=== PATIENT | female | born 1965 | race Caucasian/White ===

== ENCOUNTER 2017-01-21 09:16 | Outpatient (CLI) | payer BC ==
[~2017-01-21 09:16] MED LIST: LISI-209 PO; LORA-258 PO; METO25TA3 PO
== END 2017-01-21 18:17 | disposition home or self-care (01) ==
LOC: SMA 09:16
PROVIDERS: ATTEND Family Medicine
DX: Z12.31 Encounter for screening mammogram for malignant neoplasm of breast (principal)
CPT/HCPCS: G0202

== ENCOUNTER 2018-03-11 12:40 | Outpatient (CLI) | payer BC | END 2018-03-11 21:47 | disposition home or self-care (01) | LOC: SMA 12:40 | PROVIDERS: ATTEND Family Medicine | DX: Z12.31 Encounter for screening mammogram for malignant neoplasm of breast (principal) | CPT/HCPCS: 77067 ==

== ENCOUNTER 2021-03-05 08:15 | Outpatient (CLI) | payer BC | END 2021-03-05 18:11 | disposition home or self-care (01) | LOC: SMA 08:15 | PROVIDERS: ATTEND Family Medicine | DX: Z12.31 Encounter for screening mammogram for malignant neoplasm of breast (principal) | CPT/HCPCS: 77067 ==

== ENCOUNTER 2023-08-20 10:28 | Outpatient (CLI) | payer BC | END 2023-08-20 18:12 | disposition home or self-care (01) | LOC: SMA 10:28 | PROVIDERS: ATTEND Family Medicine | DX: Z12.31 Encounter for screening mammogram for malignant neoplasm of breast (principal) | CPT/HCPCS: 77067 ==